=== PATIENT | female | born 1940 | race Caucasian/White ===

== ENCOUNTER 2018-09-26 07:35 | Inpatient (IN) | payer OTHER ==
[~2018-09-26] VITALS: Ht 157.5 cm; Wt 78.9 kg
[~2018-09-26 07:35] MED LIST: ATORVASTATIN CA20 MG PO; CILOSTAZOL100 MG PO; GRALISE1 EACH PO; JANUMET 50-1,01 EACH PO; LEVOTHY PO; LOSARTAN-HCTZ1 EAC1 PO; PROPANALOL PO; [UNRECOGNIZED DRUG - OTHER] PO; [UNRECOGNIZED DRUG - OTHER] PO; [UNRECOGNIZED DRUG - OTHER] PO
[2018-09-29] MEDS ORDERED: DEXILANT30 MG PO (16:12)
[2018-09-29] MEDS ORDERED: PROPRANOLOL HCL40 MG PO (16:15)
[2018-09-29] MEDS ORDERED: LEVOTHYROXINE88 MCG PO (16:18)
[2018-09-29] MEDS ORDERED: RANITIDINE HCL300 MG PO (16:19)
[2018-09-29] MEDS ORDERED: ANASTROZOLE1 MG PO (16:24)
[2018-10-02] MEDS ORDERED: INTEGRA PLUS C1 EACH PO (08:10)
[2018-10-02] MEDS ORDERED: OXYCONTIN10 M1 PO (08:10)
[2018-10-02] MEDS ORDERED: XARELTO10 MG PO (08:10)
== END 2018-10-03 19:48 | DRG 470 ==
LOC: SURG 09-29 09:30 → O/R 09-29 09:30 → RECOVERY 09-29 10:34 → SURG 09-29 19:56
PROVIDERS: ADMIT Orthopaedic Surgery Sports Medicine
PROC: 0SRC0J9 Replacement of Right Knee Joint with Synthetic Substitute, Cemented, Open Approach (ICD-10-PCS; principal; 2018-09-29 12:00)
DX: M17.11 Unilateral primary osteoarthritis, right knee (principal); E03.8 Other specified hypothyroidism; I10 Essential (primary) hypertension; E11.9 Type 2 diabetes mellitus without complications; Z79.4 Long term (current) use of insulin